=== PATIENT | female | born 1960 | race Caucasian/White ===

== ENCOUNTER 2017-12-28 16:46 | Emergency (ER) | payer OTHER ==
[~2017-12-28] VITALS: Ht 175.3 cm; Wt 573.8 kg
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
[2017-12-28] MEDS ORDERED: HYDROCODON-ACE1 EAC2 PO (17:43)
[2017-12-28 17:49] VITALS: BP 147/84
== END 2017-12-28 17:50 ==
LOC: ERH 16:46
DX: S46.911A Strain of unspecified muscle, fascia and tendon at shoulder and upper arm level, right arm, initial encounter (principal); V43.52XA Car driver injured in collision with other type car in traffic accident, initial encounter; Y92.410 Unspecified street and highway as the place of occurrence of the external cause